=== PATIENT | female | born 1945 | race Caucasian/White ===

== ENCOUNTER 2018-09-03 06:01 | Day surgery (SDC) | payer MEDICARE, BC ==
[~2018-09-03] VITALS: Ht 157.5 cm; Wt 65.0 kg
[~2018-09-03 06:01] MED LIST: ASPI81CH PO; ATORVASTATIN CA10 MG PO; Amlodipine Besyl5 MG PO; CALCAVITD PO; CHOL10002; Diovan160 MG PO; FISH1000 PO; HEARTBURN RELI150 M1 PO; LOSA50 PO; MAGOXI400 PO; Nitrostat0.4 MG SL; TRAZ50 PO; TRIHYD253A PO; UBID10
[2018-09-03] MEDS ORDERED: METO25ER PO (07:04)
--- NOTE | 2018-09-03 07:46 | NUR ---
PT RETURNED TO RECOVERY ROOM IN [facility]. RIGHT RADIAL TR BAND SITE WITH WRIST BOARD IN PLACE SOFT WITH NO HEMATOMA NO PULSATILE BLEEDING. PT DENIES CHEST PAIN. PT DESCRIBES"SORENESS" AT RIGHT RADIAL SITE. DR HERNANDEZ IN ROOM TO SEE PT. CALL LIGHT IN REACH. PT DRINKING COFFEE WITH CALL LIGHT IN REACH AND FAMILY IN ROOM.
--- NOTE | 2018-09-03 10:02 | NUR ---
10 CC OF AIR REMOVED OVER 20 MIN OUT OF NOW DEFLATED RIGHT TR BAND. NO HEMATOMA, NO BLEEDING . DISCHARGE INSTRUCTIONS REVIEWED AND ALL QUESTIONS ANSWERED.
--- NOTE | 2018-09-03 10:16 | NUR ---
NO CHANGES TO RIGHT RADIAL DEFLATED TR BAND SITE; NO HEMATOMA, NO PULSATILE BLEEDING.
--- NOTE | 2018-09-03 10:31 | NUR ---
PT AMBULATED TO BR TO VOID. DEFLATED RIGHT TR BAND REMOVED AND POLYMEM PLACED OVER RIGHT RADIAL SITE; NO HEMATOMA, NO PULSATILE BLEEDING. 20 G IV DISCONTINUED FROM RIGHT AC WITH INTACT CANNULA.
--- NOTE | 2018-09-03 10:37 | NUR ---
RIGHT WRIST BOARD IN PLACE. RIGHT ARM SLING PLACED. NO CHANGES TO RIGHT RADIAL SITE; NO HEMATOMA, NO PULSATILE BLEEDING. PT ESCORTED OUT VIA WHEELCHAIR ESCORT.
== END 2018-09-03 10:42 | disposition home or self-care (01) ==
LOC: MHTC 06:01
DX: I25.10 Atherosclerotic heart disease of native coronary artery without angina pectoris (principal); I34.0 Nonrheumatic mitral (valve) insufficiency; I10 Essential (primary) hypertension; E78.5 Hyperlipidemia, unspecified; Z79.899 Other long term (current) drug therapy; Z79.82 Long term (current) use of aspirin
CPT/HCPCS: 93458; 99152; 99153; C1769; C1894; J1644; J2250; J3010; J7030; Q9967

== ENCOUNTER 2019-02-15 06:17 | Day surgery (SDC) | payer MEDICARE, BC ==
[~2019-02-15] VITALS: Ht 157.5 cm; Wt 63.0 kg
[~2019-02-15 06:17] MED LIST changes: +METO25ER PO
[2019-02-15] MEDS ORDERED: Lisinopril2.5 MG PO (07:16)
[2019-02-15] MEDS ORDERED: CLOP75 PO (07:16)
--- NOTE | 2019-02-15 08:31 | NUR ---
PT TOLERATED RIKKI WELL. PT'S IN ROOM. CALL LIGHT IN REACH. DISCHARGE INSTRUCTIONS REVIEWED AND ALL QUESTIONS ANSWERED.
--- NOTE | 2019-02-15 09:01 | NUR ---
PT DRANK WATER WITH NO ASPIRATION. 20 G IV DISCONTINUED FROM RIGHT AND WITH INTACT CANNULA. PT AMBULATED TO TO VOID. PT ESCORTED OUT VIA WHEELCHAIR ESCORT.
== END 2019-02-15 23:23 | disposition home or self-care (01) ==
LOC: MHTC 06:17
DX: I34.0 Nonrheumatic mitral (valve) insufficiency (principal); I34.1 Nonrheumatic mitral (valve) prolapse; I70.0 Atherosclerosis of aorta; I25.10 Atherosclerotic heart disease of native coronary artery without angina pectoris; I10 Essential (primary) hypertension; E78.5 Hyperlipidemia, unspecified; E66.9 Obesity, unspecified; Z82.49 Family history of ischemic heart disease and other diseases of the circulatory system; Z79.899 Other long term (current) drug therapy; Z79.02 Long term (current) use of antithrombotics/antiplatelets; Z86.73 Personal history of transient ischemic attack (TIA), and cerebral infarction without residual deficits; Z68.25 Body mass index [BMI] 25.0-25.9, adult
CPT/HCPCS: 93312; 93325; J2704; J7120

== ENCOUNTER → 2022-04-17 | Outpatient (CLI) | payer MEDICARE, BC ==
[~2022-04-17] MED LIST changes: +CLOP75 PO; +Lisinopril2.5 MG PO
== END | disposition home or self-care (01) ==
LOC: LAB 11:40 → LAB SHORT 11:40 → PLD 11:40
DX: L57.0 Actinic keratosis (principal)
CPT/HCPCS: 88305